=== PATIENT | female | born 1960 | race African-American/Black ===

== ENCOUNTER 2016-10-20 21:16 | Emergency (ER) | payer MEDICARE, OTHER ==
--- NOTE | ~2016-10-20 | EKG ---
PATIENT: NATALEE BARRAZA UNIT #: [id number] Ventricular Rate: 72 BPM Atrial Rate: 72 BPM P-R Interval: 144 ms QRS Duration: 82 ms Q-T Interval: 440 ms QTC Calculation(Bezet): 481 ms P [place]: 41 degrees Calculated R [place]: 11 degrees Calculated T [place]: 8 degrees Diagnosis Line: Normal sinus rhythm Diagnosis Line: Left atrial enlargement Diagnosis Line: Prolonged QT Diagnosis Line: Abnormal ECG Diagnosis Line: Diagnosis Line: Confirmed by KAREEN EMERY MD ([id number]) on 10/22/2016 Diagnosis Line: 4:04:43 PM INTERPRETING MD: RUPERT TSE
--- NOTE | ~2016-10-20 | CT71 ---
[facility] A Service of [facility] RADIOLOGY TEXT RESULTS PATIENT: NATALEE BARRAZA LOCATION: [place] : 58 UNIT #: [id number] AGE: [address]: Andrea Black MD SEX: F ORDER DR: [id number] [facility] [address] [place], [place] [address] [id number] MR#: [id number] Acc #: [id number] NAME: NATALEE BARRAZA : 1960 SEX: F STUDY DATE/TIME: 10/20/2016 21:21 UNIT: [facility] ROOM: STUDY DESCRIPTION: CT Head Wo Contrast Attending Physician: Andrea Black M.D. Referring Physician: Allegra Self Referred Ordering Physician: Andrea Black M.D. [facility] REPORT This report is preliminary unless electronic signature is present EXAM CT scan of the head without contrast. INDICATIONS Headache and dizziness for 3 days. TECHNIQUE Axial noncontrast images were obtained from the skull base to the vertex. This CT exam was performed with one or more of the following radiation dose reduction techniques: automatic exposure control, adjustment of mA and/or kV according to patient size, and iterative reconstruction. FINDINGS Ventricular size and configuration are normal. There is no evidence of acute infarct or hemorrhage. There are no extra-axial fluid collections. No mass lesion or mass effect is seen. There are no skull fractures. IMPRESSION Normal noncontrast head CT. Dictated by... Gurpreet Manzanares M.D. THIS IS AN ELECTRONICALLY VERIFIED REPORT Gurpreet Manzanares M.D. at 10/21/2016 2:01 PM GARETT/aminah TD: 10/21/2016 10:07 JOB #: [id number] [facility] A Service of [facility] RADIOLOGY TEXT RESULTS PATIENT: NATALEE BARRAZA LOCATION: [place] : 58 UNIT #: [id number] AGE: [address]: Andrea Black MD SEX: F ORDER DR: MEDICAL IMAGING REPORT Page 1 of 1 COPY
[2016-10-20 20:53] LABS: BASOPHIL% 0.7 % (0-2.5); EOSINOPHIL% 0.4 % (0.0-7.0); HEMATOCRIT 38.9 % (35.0-45.0); HEMOGLOBIN 13.2 gm/dL (12.0-16.0); LYMPHOCYTE# 2.1 X10e3 (1.0-3.5); LYMPHOCYTE% 40.1 % (17.0-45.0); MEAN CELL VOLUME 113.7 FL (83-96); MEAN CORPUSCULAR HEMOGLOBIN 38.7 PG (28-34); MEAN PLATELET VOLUME 9.3 FL (6.5-11.5); MONOCYTE# 0.6 X10e3 (0-1.0); MONOCYTE% 10.4 % (3.0-12.0); NEUTROPHIL# 2.6 X10e3 (1.5-7.1); NEUTROPHIL% 48.4 % (40-75); PLATELET COUNT 242 X10e3 (140-420); RED BLOOD COUNT 3.42 X10e (3.90-5.30); RED CELL DISTRIBUTION WIDTH 15.2 % (11.0-15.5); WHITE BLOOD COUNT 5.3 X10e3 (4.0-10.5)
[2016-10-20 20:55] LABS: DIFF IND YES
[2016-10-20 21:08] LABS: ALBUMIN SERUM 4.3 g/dL (3.5-5.0); BILIRUBIN, DIRECT 0.2 mg/dL (0.0-0.2); BILIRUBIN,INDIRECT 0.8 mg/dL (0.0-0.9); BUN/CREATININE RATIO 12.5; CALCIUM SERUM 8.8 mg/dL (8.4-10.2); CREATININE SERUM 0.8 mg/dL (0.6-1.4); GLOM FILT RATE Estimated 94.9 mL/min (>60); POTASSIUM 3.1 mmol/L (3.5-5.1); PROTEIN TOTAL SERUM 7.7 g/dL (6.0-8.3)
[2016-10-20 21:10] LABS: URINE SOURCE CLEAN CATCH
[2016-10-20 21:13] LABS: PLATELET ESTIMATE NORMAL (NORMAL)
[~2016-10-20 21:16] MED LIST: ALDACTONE PO; ALDACTONE25 MG PO; ASPIRIN81 M1 PO; BACLOFEN10 MG PO; CARDIZEM CD240 M2 PO; CARTIA XT120 MG PO; DILTIAZEM 24HR240 MG PO; HYDROCHLOROTHIA25 MG PO; IBUPROFEN IB200 M1; LOPRESSOR PO; NAPROSYN-EC500 M1 PO; NAPROSYN500 MG PO; NAPROXEN PO; NO MEDICATIONS; NORVASC PO; OMEPRAZOLE20 M1 PO; OMEPRAZOLE20 M2 PO; PENICILLIN V P500 MG PO; PRENATAL MULTI1 EAC3 PO; SPECTAZOLE15 GM TOP; ZOCOR PO; ZYRTEC PO
[2016-10-20 21:33] LABS: POC - CKMB 1.2 ng/mL (0.0-7.9); POC - TROPONIN <0.05 ng/mL (<=0.05)
[2016-10-20 21:52] LABS: URINE APPEARANCE CLOUDY; URINE BLOOD NEG (NEG); URINE COLOR DK YELLOW; URINE GLUCOSE NEG (NEG); URINE KETONE TRACE (NEG); URINE LEUKOCYTE ESTERASE TRACE (NEG); URINE NITRATE NEG (NEG); URINE PROTEIN 1+ (NEG); URINE SPECIFIC GRAVITY 1.027 (1.003-1.035)
[2016-10-20 21:56] LABS: CULTURE INDICATED? YES; URINE BACTERIA AUWI 1+ (NEGATIVE); URINE SQUAMOUS EPITHELIAL CELL FEW /[HPF]
[2016-10-20 22:03] LABS: URINE BILIRUBIN NEG (NEG)
== END 2016-10-20 23:05 | disposition home or self-care (01) ==
LOC: CED 21:16
PROVIDERS: Emergency Medicine
DX: E87.6 Hypokalemia (principal); R42 Dizziness and giddiness; F17.210 Nicotine dependence, cigarettes, uncomplicated
CPT/HCPCS: 36415; 70450; 80048; 80076; 81003; 82553; 83690; 84484; 85025; 87086; 93005; 96360; 99284; G0480